=== PATIENT | female | born 1955 ===

== ENCOUNTER 2017-01-06 11:02 | Emergency (ER) | payer SELFPAY ==
--- NOTE | 2017-01-06 11:32 | UC ---
Throat Pain/Nasal Brice HPI - HPI Summary HPI Summary: Sore throat for 4 days---not responding to OTC treatment---patient is developing cough and hoarseness as well - History of Current Complaint Chief Complaint: UCGeneralIllness Stated Complaint: SORE THROAT Time Seen by Provider: 01/06/17 11:31 Hx Obtained From: Patient ?: No Onset/Duration: Gradual Onset, Lasting Days - 4, Worse Since - past 24 hours Severity: Moderate Cough: Nonproductive Associated Signs & Symptoms: Positive: Hoarseness - Allergies/Home Medications Allergies/Adverse Reactions: Allergies Allergy/AdvReac Type Severity Reaction Status Date / Time No Known Allergies Allergy Verified 01/06/17 11:18 Home Medications: Home Medications NK [No Home Medications Reported] 01/06/17 [History Confirmed 01/06/17] PMH/Surg Hx/FS Hx/Imm Hx Previously Healthy: Yes - Surgical History Surgery Procedure, Year, and Place: c/sec - Family History Known Family History: Positive: None - Social History Occupation: Employed Full-time Lives: With Family Alcohol Use: None Substance Use Type: None Smoking Status (MU): Never Smoked Tobacco Have You Smoked in the Last Year: No Review of Systems Constitutional: Negative Skin: Negative Eyes: Negative ENT: Sore Throat Respiratory: Cough Cardiovascular: Negative Gastrointestinal: Negative Genitourinary: Negative Motor: Negative Neurovascular: Negative Musculoskeletal: Negative Neurological: Negative Psychological: Negative All Other Systems Reviewed And Are Negative: Yes Physical Exam Triage Information Reviewed: Yes Appearance: Well-Appearing, No Pain Distress, Well-Nourished Vital Signs: Initial Vital Signs Temp 100 F 01/06/17 11:19 Pulse 96 01/06/17 11:19 Resp 18 01/06/17 11:19 BP 144/82 01/06/17 11:19 Pulse Ox 99 01/06/17 11:19 Vital Signs Reviewed: Yes Eye Exam: Normal Eyes: Positive: Conjunctiva Clear ENT Exam: Normal ENT: Positive: Normal ENT inspection, Hearing grossly normal, Pharynx normal, TMs normal. Negative: Nasal congestion, Nasal drainage, Tonsillar swelling, Tonsillar exudate, Trismus, Muffled/hoarse voice Dental Exam: Normal Neck exam: Normal Neck: Positive: 1 Respiratory Exam: Normal Respiratory: Positive: Chest non-tender, Lungs clear, Normal breath sounds, No respiratory distress, No accessory muscle use Cardiovascular Exam: Normal Cardiovascular: Positive: RRR, No Murmur, Pulses Normal, Brisk Capillary Refill Musculoskeletal Exam: Normal Musculoskeletal: Positive: Strength Intact, ROM Intact, No Edema Neurological Exam: Normal Neurological: Positive: Alert, Muscle Tone Normal Psychological Exam: Normal Skin Exam: Normal Diagnostics - Laboratory Diagnostic Studies Completed/Ordered: RST (-) Throat Pain/Nasal Course/Dx - Course Assessment/Plan: OTC treaments for pain relief increase fluids, follow BP with PCP - Differential Dx/Diagnosis Differential Diagnosis/HQI/PQRI: Laryngitis, Peritonsillar Abscess, Pharyngitis , Sinusitis, URI Provider Diagnoses: viral syndrome, high blood pressure with out dx of hypertension Discharge - Discharge Plan Condition: Stable Disposition: HOME Patient Education Materials: Phenol (By mouth), Pharyngitis (ED), Viral Syndrome (ED), DASH Eating Plan (ED), Hypertension (ED) Referrals: [facility] [place] [facility]IAN REFERRAL [Outside] - 2 Weeks No Primary Care Phys,NOPCP [Primary Care Provider] -
== END 2017-01-06 11:50 | disposition home or self-care (01) ==
LOC: UCEAST 11:02
DX: B34.9 Viral infection, unspecified (principal); R03.0 Elevated blood-pressure reading, without diagnosis of hypertension
CPT/HCPCS: 87651; 99201; G0463